=== PATIENT | female | born 1975 | race Caucasian/White ===

== ENCOUNTER 2016-11-06 13:42 | Emergency (ER) | payer MEDICARE ==
--- NOTE | 2016-11-06 14:01 | ERPHSYRPT ---
- History of Present Illness Time Seen by Provider: 11/06/16 13:51 Source: patient Physician History: CC: hallucinations hx: 41 y/o patient of [facility]. She had been admitted at for 6 weeks for schizophrenia. She went home 4 days ago. She is on injectable long acting prolixin, clozapine, cogentin and antihypertensives. She lives home alone. Her children are with their father. She has a custody hearing on Tue and is anxious and worried. Unable to sleep. She is scared to be alone. She spoke to this AM. She began to have hallucinations seeing red balloons and black snakes in her vision. She is paranoid. Denies and denies self harm. Allergies/Adverse Reactions: No Known Drug Allergies Allergy (Unverified 11/06/16 14:02) Home Medications: Benztropine Mesylate 0.5 mg PO TID 11/06/16 [History] Clozapine [Fazaclo] 100 mg PO HS 11/06/16 [History] Docusate Sodium 100 mg [Colace 100 MG] 100 mg PO DAILY 11/06/16 [History] Lisinopril/Hydrochlorothiazide [Lisinopril-Hctz 10-12.5 mg Tab] 1 each PO DAILY 11/06/16 [History] Hx Tetanus, Diphtheria Vaccination/Date Given: Yes Hx Influenza Vaccination/Date Given: Yes Hx Pneumococcal Vaccination/Date Given: No - Past Medical History Pertinent Past Medical History: Yes Neurological History: No Pertinent History ENT History: No Pertinent History Cardiac History: No Pertinent History Respiratory History: No Pertinent History Endocrine Medical History: No Pertinent History GI Medical History: No Pertinent History History: No Pertinent History Psycho-Social History: Anxiety, Bipolar, Depression, Panic Disorder, Other Female Reproductive Disorders: No Pertinent History Other Medical History: paranoid schizophrenic disorder - Past Surgical History Past Surgical History: Yes Neuro Surgical History: No Pertinent History Cardiac: No Pertinent History Respiratory: No Pertinent History Gastrointestinal: No Pertinent History Genitourinary: No Pertinent History Musculoskeletal: No Pertinent History Female Surgical History: Section - Social History Smoking Status: Former smoker Exposure to second hand smoke: No Drug Use: none Patient Lives Alone: No - Female History Hx Now: No - Review of Systems Constitutional: No Fever, No Chills Eyes: No Symptoms Ears, Nose, & Throat: No Symptoms Respiratory: No Cough, No Dyspnea Cardiac: No Chest Pain Abdominal/Gastrointestinal: No Abdominal Pain, No Nausea, No Vomiting, No Diarrhea Genitourinary Symptoms: No Symptoms Musculoskeletal: No Symptoms Skin: No Rash Neurological: No Focal Weakness, No Headache, No Parasthesia Psychological: Anxiety, Emotional Lability, Hallucinations, Mood Changes, No Alcohol Abuse, No Drug Abuse, No Suicidal Ideations, No Homicidal Ideations All Other Systems: Reviewed and Negative - Nursing Vital Signs Nursing Vital Signs: Initial Vital Signs Pulse Rate 78 Respiratory Rate 18 Blood Pressure [Right Arm] 124/73 Pain Intensity 0 - Physical Exam General Appearance: alert Eyes, Ears, Nose, Throat Exam: normal ENT inspection, moist mucous membranes Neck Exam: normal inspection, non-tender, supple Respiratory Exam: normal breath sounds, lungs clear Cardiovascular Exam: regular rate/rhythm, No murmur Gastrointestinal/Abdominal Exam: soft, No tenderness, No distention Extremities Exam: normal range of motion Current Suicidality: denies suicide plan Neurological Exam: alert Appearance: appropriate appearance Behavior/Eye Contact/Speech: alert & cooperative Skin Exam: normal color, warm, dry, No rash - Course Nursing assessment & vital signs reviewed: Yes Ordered Tests: Active Orders 24 hr Category Date Time Status Clean Catch Urine Specimen STAT Care 11/06/16 13:56 Active Psychiatric Evaluation STAT Care 11/06/16 13:56 Active Regular Diet Diet 11/06/16 Dinner Active Regular Diet Diet 11/06/16 Dinner Active CBC W DIFF Stat Lab 11/06/16 14:20 Completed CMP Stat Lab 11/06/16 14:20 Completed CULTURE,URINE Stat Lab 11/06/16 14:30 Received Ethyl Alcohol,Urine Stat Lab 11/06/16 14:20 Completed HCG,QUALITATIVE URINE Stat Lab 11/06/16 14:20 Completed UA W/ MICROSCOPIC Stat Lab 11/06/16 14:20 Completed Urine Triage Profile Stat Lab 11/06/16 14:20 Completed Lab/Rad Data: Laboratory Result Diagrams 11/06/16 14:20 11/06/16 14:20 Laboratory Results 11/06/16 11/06/16 11/06/16 Range/Units 14:20 14:20 14:20 WBC (4.0-10.5) K/mm3 RBC (4.1-5.4) M/mm3 Hgb (12.0-16.0) gm/dl Hct (35-47) % MCV (78-100) fl MCH (26-32) pg MCHC (32-36) g/dl RDW (11.5-14.0) % Plt Count (150-450) K/mm3 MPV (6-9.5) fl Gran % (36.0-66.0) % Lymphocytes % (24.0-44.0) % Monocytes % (0.0-12.0) % Eosinophils % (0.00-5.0) % Basophils % (0.0-0.4) % Basophils # (0-0.4) Sodium 137 (136-145) mEq/L Potassium 3.0 L* (3.5-5.1) mEq/L Chloride 99 (98-107) mEq/L Carbon Dioxide 27.4 (21-32) mEq/L Anion Gap 11.7 (5-15) MEQ/L BUN 13 (9-20) mg/dL Creatinine 0.90 (0.55-1.30) mg/dl Estimated GFR > 60 ML/MIN Glucose 110 (70-110) MG/DL Calcium 9.1 (8.5-10.1) mg/dL Total Bilirubin 0.4 (0.2-1.0) mg/dL AST 10 L (15-37) U/L ALT 23 (12-78) U/L Alkaline Phosphatase 69 (46-116) U/L Serum Total Protein 7.9 (6.4-8.2) gm/dL Albumin 3.9 (3.4-5.0) g/dL Ur Collection Type Urine Color (YELLOW) Urine Appearance (CLEAR) Urine pH 5.5 (5-6) Ur Specific [place] (1.005-1.025) Urine Protein (Negative) Urine Glucose (UA) (NEGATIVE) mg/dL Urine Ketones (NEGATIVE) Urine Nitrite (NEGATIVE) Urine Bilirubin (NEGATIVE) Urine Urobilinogen (0-1) mg/dL Urine WBC (Auto) (NEGATIVE) Urine RBC (Auto) (0-5) Karlos/ul Urine Microscopic WBC (0-5) /HPF Ur Epithelial Cells (FEW) /HPF Urine Bacteria (NEGATIVE) /HPF Urine HCG, Qual NEGATIVE (Negative) Urine Opiates Level (NEGATIVE) Ur Methadone (NEGATIVE) Urine Barbiturates (NEGATIVE) Ur Phencyclidine (PCP) (NEGATIVE) Urine Amphetamine (NEGATIVE) U Benzodiazepine Level (NEGATIVE) Urine Cocaine (NEGATIVE) Urine Marijuana (THC) (NEGATIVE) Urine Ethyl Alcohol 1 (0.00-20) mg/dl Specimen Received 11/06/16 11/06/16 11/06/16 Range/Units 14:20 14:20 14:20 WBC 10.4 (4.0-10.5) K/mm3 RBC 4.60 (4.1-5.4) M/mm3 Hgb 12.2 (12.0-16.0) gm/dl Hct 37.6 (35-47) % MCV 81.7 (78-100) fl MCH 26.5 (26-32) pg MCHC 32.4 (32-36) g/dl RDW 14.3 H (11.5-14.0) % Plt Count 209 (150-450) K/mm3 MPV 11.2 H (6-9.5) fl Gran % 74.6 H (36.0-66.0) % Lymphocytes % 16.5 L (24.0-44.0) % Monocytes % 6.0 (0.0-12.0) % Eosinophils % 2.8 (0.00-5.0) % Basophils % 0.1 (0.0-0.4) % Basophils # 0.01 (0-0.4) Sodium (136-145) mEq/L Potassium (3.5-5.1) mEq/L Chloride (98-107) mEq/L Carbon Dioxide (21-32) mEq/L Anion Gap (5-15) MEQ/L BUN (9-20) mg/dL Creatinine (0.55-1.30) mg/dl Estimated GFR ML/MIN Glucose (70-110) MG/DL Calcium (8.5-10.1) mg/dL Total Bilirubin (0.2-1.0) mg/dL AST (15-37) U/L ALT (12-78) U/L Alkaline Phosphatase (46-116) U/L Serum Total Protein (6.4-8.2) gm/dL Albumin (3.4-5.0) g/dL Ur Collection Type VOID Urine Color LT.YELLOW (YELLOW) Urine Appearance SLIGHTLY CLOUDY (CLEAR) Urine pH 5.5 (5-6) Ur Specific [place] <=1.005 (1.005-1.025) Urine Protein NEGATIVE (Negative) Urine Glucose (UA) NEGATIVE (NEGATIVE) mg/dL Urine Ketones NEGATIVE (NEGATIVE) Urine Nitrite NEGATIVE (NEGATIVE) Urine Bilirubin NEGATIVE (NEGATIVE) Urine Urobilinogen 0.2 (0-1) mg/dL Urine WBC (Auto) TRACE (NEGATIVE) Urine RBC (Auto) NEGATIVE (0-5) Karlos/ul Urine Microscopic WBC 5-10 (0-5) /HPF Ur Epithelial Cells FEW (FEW) /HPF Urine Bacteria MODERATE (NEGATIVE) /HPF Urine HCG, Qual (Negative) Urine Opiates Level NEG. (NEGATIVE) Ur Methadone NEG. (NEGATIVE) Urine Barbiturates NEG. (NEGATIVE) Ur Phencyclidine (PCP) NEG. (NEGATIVE) Urine Amphetamine NEG. (NEGATIVE) U Benzodiazepine Level NEG. (NEGATIVE) Urine Cocaine NEG. (NEGATIVE) Urine Marijuana (THC) NEG. (NEGATIVE) Urine Ethyl Alcohol (0.00-20) mg/dl Specimen Received 11/06/16 1430 - Progress Progress Note: 11/06/16 14:01 Will obtain mental health evaluation thru [facility], her mental health provider. 11/06/16 17:58 Spoke to [facility] behavioralist who did mental health evaluation. He advised release with OP follow up. Will release with instructions. Counseled pt/family regarding: lab results, diagnosis, need for follow-up - Departure Time of Disposition: 17:59 Departure Disposition: Home Clinical Impression: Hallucinations, Schizophrenia Condition: Fair Critical Care Time: No Referrals: MARICARMEN VALVERDE [Primary Care Provider] - Instructions: Schizophrenia Additional Instructions: Stay with family tonite. Call [facility] Tuesday to arrange follow up. Take your medications as already prescribed.
[2016-11-06 14:26] LABS: BASOPHIL % 0.1 % (0.0-0.4); Eosinophil % 2.8 % (0.00-5.0); Granulocytes % 74.6 % (36.0-66.0); Lymphocytes % 16.5 % (24.0-44.0); Mean Cell Volume 81.7 fl (78-100); Mean Corpuscular Hemoglobin 26.5 pg (26-32); Mean Platelet Volume 11.2 fl (6-9.5); Platelet Count 209 K/mm3 (150-450); Red Cell Distribution Width 14.3 % (11.5-14.0); White Blood Count 10.4 K/mm3 (4.0-10.5)
[2016-11-06 14:39] LABS: Collection Type VOID; Ph 5.5 (5-6)
[2016-11-06 14:40] LABS: COMPLETE URINE MICROSCOPIC? YES
[2016-11-06 14:45] LABS: Bacteria MODERATE /HPF (NEGATIVE); Epithelial Cells FEW /HPF (FEW)
[2016-11-06 14:56] LABS: ALBUMIN 3.9 g/dL (3.4-5.0); ALKALINE PHOSPHATASE 69 U/L (46-116); ANION GAP 11.7 MEQ/L (5-15); BILIRUBIN,TOTAL 0.4 mg/dL (0.2-1.0); BLOOD UREA NITROGEN 13 mg/dL (9-20); CHLORIDE 99 mEq/L (98-107); Carbon Dioxide 27.4 mEq/L (21-32); Glucose 110 MG/DL (70-110); SGOT/AST 10 U/L (15-37); SGPT/ALT 23 U/L (12-78); SODIUM 137 mEq/L (136-145); Total Protein 7.9 gm/dL (6.4-8.2)
[2016-11-06 18:16] VITALS: BP 124/70; PULSE 76; O2SAT 100
== END 2016-11-06 18:15 | disposition home or self-care (01) ==
LOC: ED 13:42
DX: R44.3 Hallucinations, unspecified (principal); F20.9 Schizophrenia, unspecified; Z79.899 Other long term (current) drug therapy
CPT/HCPCS: 36415; 80053; 80307; 80320; 81000; 83986; 84703; 85025; 87077; 87086; 87186; 90791; 99283; 99284; 99285; Q3014